=== PATIENT | female | born 1960 | race American Indian/Alaskan Native ===

== ENCOUNTER 2016-09-28 07:59 | Observation (INO) | payer BC, OTHER ==
--- NOTE | 2016-09-28 08:14 | EDM.PDOC ---
ED HPI GI/ABDOMINAL - General Chief Complaint: Gastrointestinal Problem Stated Complaint: VOMITING Time Seen by Provider: 09/28/16 08:10 Source of Information: Reports: Patient History Limitations: Reports: No limitations - History of Present Illness INITIAL COMMENTS - FREE TEXT/NARRATIVE: HISTORY AND PHYSICAL: History of present illness: [] Review of systems: As per history of present illness and below otherwise all systems reviewed and negative. Past medical history: As per history of present illness and as reviewed below otherwise noncontributory. Surgical history: As per history of present illness and as reviewed below otherwise noncontributory. Social history: No reported history of drug or alcohol abuse. Family history: As per history of present illness and as reviewed below otherwise noncontributory. Physical exam: HEENT: Atraumatic, normocephalic, pupils reactive, negative for conjunctival pallor or scleral icterus, mucous membranes moist, throat clear, neck supple, nontender, trachea midline. Lungs: Clear to auscultation, breath sounds equal bilaterally, chest nontender. Heart: S1S2, regular, negative for clicks, rubs, or JVD. Abdomen: Soft, nondistended, nontender. Negative for masses or hepatosplenomegaly. Negative for costovertebral tenderness. Pelvis: Stable nontender. Genitourinary: Deferred. Rectal: Deferred. Extremities: Atraumatic, negative for cords or calf pain. Neurovascular unremarkable. Neuro: Awake, alert, oriented. Cranial nerves II through XII unremarkable. Cerebellum unremarkable. Motor and sensory unremarkable throughout. Exam nonfocal. Diagnostics: [Chest x-ray hyperinflation right-sided port chronic changes no acute disease interpreted by me report reviewed. EKG normal sinus rhythm at [address] findings no STEMI] Therapeutics: Anti-emetics IV fluids Protonix administered] Impression: [] Plan: [Signs and symptoms consistent with upper GI bleed by history though no coffee- ground emesis in the emergency department. Patient describes melanotic stool however stool in ED is dark brown with occult heme-positivity. Patient is on Lovenox injections twice a day with which she has been compliant but has not had a shot this morning. Patient with no active vomiting. She is chronically ill -appearing but in no acute distress. She states she is unable to tolerate any by mouth fluids or food. Mild anemia reflected on labs which are other is essentially unremarkable. Will do observation admission, given that the patient has upper GI bleed by history and occult heme-positive stool in ED in the setting of Lovenox erythema, and as well patient states she has uncontrolled pain and still has uncontrolled nausea and does not feel that she can function as an outpatient, and is requesting admission for hydration. CT pending to rule out acute intra-abdominal process. Case discussed with Dr. Ross hospitalist events solutions consultant who is aware of history and findings and agrees with observation admission to a floor bed for continued hydration further workup and treatment as needed. Patient stable on multiple reexamines with no upper GI bleeding and no gross blood per rectum. Definitive disposition and diagnosis as appropriate pending reevaluation and review of above. Radical Care 31 minutes - Related Data Allergies/ADRs: Allergies Allergy/AdvReac Type Severity Reaction Status Date / Time No Known Allergies Allergy Verified 09/28/16 08:08 Home Meds: Home Meds LORazepam 1 tab PO BID PRN 10/20/15 [History] Sertraline HCl 1 tab PO DAILY 10/20/15 [History] Ranitidine HCl 1 tab PO DAILY 02/15/16 [History] hydrOXYzine Pamoate [Hydroxyzine Pamoate] 1 tab PO DAILY 02/15/16 [History] Fluorouracil 1 dose IV ASDIRECTED 03/10/16 [History] Leucovorin Calcium [Calcium Folinate] 1 dose IV ASDIRECTED 03/10/16 [History] Oxaliplatin 1 dose IV ASDIRECTED 03/10/16 [History] Enoxaparin [Lovenox] 40 mg SQ BID 09/28/16 [History] Sucralfate [Carafate] 1 dose PO 09/28/16 [History] Past Medical History HEENT History: Reports: Other (see below) Other HEENT History: has upper denture and lower partial denture Cardiovascular History: Reports: None Respiratory History: Reports: None Gastrointestinal History: Reports: Chronic constipation, GERD, Other (see below) Other Gastrointestinal History: stomach cancer Genitourinary History: Reports: None 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: Musculoskeletal History: Reports: Fracture Other Musculoskeletal History: wrist Neurological History: Reports: None Other Neuro History: hx of motion sickness on a cruise Psychiatric History: Reports: Anxiety, Depression Endocrine/Metabolic History: Reports: None Hematologic History: Reports: Anemia Immunologic History: Reports: None Oncologic (Cancer) History: Reports: None Dermatologic History: Reports: None - Past Surgical History Head Surgeries/Procedures: Reports: None HEENT Surgical History: Reports: Other (see below) Other HEENT Surgeries/Procedures: Excision of Thyroglossal Duct Cyst Cardiovascular Surgical History: Reports: None Respiratory Surgical History: Reports: None GI Surgical History: Reports: Colonoscopy, EGD Female Surgical History: Reports: None Endocrine Surgical History: Reports: None Neurological Surgical History: Reports: None Musculoskeletal Surgical History: Reports: None Oncologic Surgical History: Reports: None Social & Family History - Family History Family Medical History: Noncontributory - Tobacco Use Smoking Status *Q: Current Every Day Smoker Years of Tobacco use: 30 Packs/Tins Daily: 0.5 - Caffeine Use Caffeine Use: Reports: None - Recreational Drug Use Recreational Drug Use: No Drug Use in Last 12 Months: No ED ROS GENERAL - Review of Systems Review Of Systems: See Below (Per history of present illness) ED EXAM, GI/ABD - Physical Exam Exam: See Below (Per history of present illness) Course - Vital Signs Last Recorded V/S: Last Vital Signs Temp 37.1 C 09/28/16 09:15 Pulse 77 09/28/16 10:13 Resp 18 09/28/16 10:13 BP 143/88 H 09/28/16 10:13 Pulse Ox 97 09/28/16 10:13 - Orders/Labs/Meds Orders: Active Orders 24 hr Category Date Time Status EKG Documentation Completion [RC] STAT Care 09/28/16 08:32 Active Peripheral IV Care [RC] . DIRECTED Care 09/28/16 08:32 Active Abdomen Pelvis w Cont [CT] Stat Exams 09/28/16 09:09 Ordered UA W/MICROSCOPIC [URIN] Stat Lab 09/28/16 08:32 Uncollected Sodium Chloride 0.9% [Saline Flush] Med 09/28/16 08:32 Active 10 ml FLUSH ASDIRECTED PRN Sodium Chloride 0.9% [Saline Flush] Med 09/28/16 08:32 Active 10 ml FLUSH ASDIRECTED PRN Sodium Chloride 0.9% [Saline Flush] Med 09/28/16 08:32 Active 2.5 ml FLUSH ASDIRECTED PRN Sodium Chloride 0.9% [Saline Flush] Med 09/28/16 08:32 Active 2.5 ml FLUSH ASDIRECTED PRN Peripheral IV Insertion Adult [OM.PC] Stat Oth 09/28/16 08:32 Ordered Medication Orders Sodium Chloride (Saline Flush) 10 ml FLUSH ASDIRECTED PRN PRN Reason: Keep Vein Open Last Admin: 09/28/16 09:01 Dose: 10 ml Sodium Chloride (Saline Flush) 2.5 ml FLUSH ASDIRECTED PRN PRN Reason: Keep Vein Open Last Admin: 09/28/16 09:02 Dose: 2.5 ml Sodium Chloride (Saline Flush) 10 ml FLUSH ASDIRECTED PRN PRN Reason: Keep Vein Open Last Admin: 09/28/16 09:01 Dose: 10 ml Sodium Chloride (Saline Flush) 2.5 ml FLUSH ASDIRECTED PRN PRN Reason: Keep Vein Open Last Admin: 09/28/16 09:02 Dose: 2.5 ml Labs: Laboratory Tests 09/28/16 09/28/16 09/28/16 Range/Units 08:42 08:42 08:42 WBC 4.06 (4.0-11.0) K/uL RBC 3.26 L (4.30-5.90) M/uL Hgb 8.7 L (12.0-16.0) g/dL Hct 27.7 L (36.0-46.0) % MCV 85.0 (80.0-98.0) fL MCH 26.7 L (27.0-32.0) pg MCHC 31.4 (31.0-37.0) g/dL RDW Std Deviation 56.7 (28.0-62.0) fl RDW Coeff of Jani 18 H (11.0-15.0) % Plt Count 298 (150-400) K/uL MPV 9.20 (7.40-12.00) fL Neut % (Auto) 64.1 (48.0-80.0) % Lymph % (Auto) 24.4 (16.0-40.0) % Oliver % (Auto) 10.1 (0.0-15.0) % Eos % (Auto) 0.7 (0.0-7.0) % Baso % (Auto) 0.7 (0.0-1.5) % Neut # (Auto) 2.6 (1.4-5.7) K/uL Lymph # (Auto) 1.0 (0.6-2.4) K/uL Oliver # (Auto) 0.4 (0.0-0.8) K/uL Eos # (Auto) 0.0 (0.0-0.7) K/uL Baso # (Auto) 0.0 (0.0-0.1) K/uL Nucleated RBC % 0.0 /100WBC Nucleated RBCs # 0 K/uL INR (0.86-1.11) APTT (18.6-31.3) SEC Sodium 139 (136-146) mmol/L Potassium 3.5 (3.5-5.1) mmol/L Chloride 104 (98-110) mmol/L Carbon Dioxide 25 (21-31) mmol/L BUN 13 (6.0-23.0) mg/dL Creatinine 0.5 L (0.6-1.5) mg/dL Est Cr Clr Drug Dosing 80.07 mL/min Estimated GFR (MDRD) > 60.0 ml/min Glucose 100 (60-110) mg/dL Calcium 8.5 L (8.8-10.8) mg/dL Total Bilirubin 0.3 (0.1-1.5) mg/dL AST 23 (5-40) IU/L ALT 24 (8-54) IU/L Alkaline Phosphatase 88 (40-150) Troponin I < 0.10 (0.0-0.29) NG/ML Total Protein 5.4 L (6.0-8.0) g/dL Albumin 2.7 L (3.5-5.0) g/dL Globulin 2.7 (2.0-3.5) g/dL Albumin/Globulin Ratio 1.0 L (1.3-2.8) Lipase 23 (7-80) U/L Blood Type Antibody Screen 09/28/16 09/28/16 Range/Units 08:42 08:58 WBC (4.0-11.0) K/uL RBC (4.30-5.90) M/uL Hgb (12.0-16.0) g/dL Hct (36.0-46.0) % MCV (80.0-98.0) fL MCH (27.0-32.0) pg MCHC (31.0-37.0) g/dL RDW Std Deviation (28.0-62.0) fl RDW Coeff of Jani (11.0-15.0) % Plt Count (150-400) K/uL MPV (7.40-12.00) fL Neut % (Auto) (48.0-80.0) % Lymph % (Auto) (16.0-40.0) % Oliver % (Auto) (0.0-15.0) % Eos % (Auto) (0.0-7.0) % Baso % (Auto) (0.0-1.5) % Neut # (Auto) (1.4-5.7) K/uL Lymph # (Auto) (0.6-2.4) K/uL Oliver # (Auto) (0.0-0.8) K/uL Eos # (Auto) (0.0-0.7) K/uL Baso # (Auto) (0.0-0.1) K/uL Nucleated RBC % /100WBC Nucleated RBCs # K/uL INR 0.98 (0.86-1.11) APTT 29.3 (18.6-31.3) SEC Sodium (136-146) mmol/L Potassium (3.5-5.1) mmol/L Chloride (98-110) mmol/L Carbon Dioxide (21-31) mmol/L BUN (6.0-23.0) mg/dL Creatinine (0.6-1.5) mg/dL Est Cr Clr Drug Dosing mL/min Estimated GFR (MDRD) ml/min Glucose (60-110) mg/dL Calcium (8.8-10.8) mg/dL Total Bilirubin (0.1-1.5) mg/dL AST (5-40) IU/L ALT (8-54) IU/L Alkaline Phosphatase (40-150) Troponin I (0.0-0.29) NG/ML Total Protein (6.0-8.0) g/dL Albumin (3.5-5.0) g/dL Globulin (2.0-3.5) g/dL Albumin/Globulin Ratio (1.3-2.8) Lipase (7-80) U/L Blood Type O POSITIVE Antibody Screen NEGATIVE Meds: Medications Generic Name Dose Route Start Last Admin Trade Name Freq PRN Reason Stop Dose Admin Sodium Chloride 10 ml 09/28/16 08:32 09/28/16 09:01 Saline Flush FLUSH 10 ml ASDIRECTED PRN Administration Keep Vein Open Sodium Chloride 2.5 ml 09/28/16 08:32 09/28/16 09:02 Saline Flush FLUSH 2.5 ml ASDIRECTED PRN Administration Keep Vein Open Sodium Chloride 10 ml 09/28/16 08:32 09/28/16 09:01 Saline Flush FLUSH 10 ml ASDIRECTED PRN Administration Keep Vein Open Sodium Chloride 2.5 ml 09/28/16 08:32 09/28/16 09:02 Saline Flush FLUSH 2.5 ml ASDIRECTED PRN Administration Keep Vein Open Discontinued Medications Generic Name Dose Route Start Last Admin Trade Name Anantq PRN Reason Stop Dose Admin Hydromorphone HCl 0.5 mg 09/28/16 09:26 09/28/16 09:31 Dilaudid IVPUSH 09/28/16 09:27 0.5 mg ONETIME ONE Administration Sodium Chloride 1,000 mls @ 999 mls/hr 09/28/16 08:32 09/28/16 09:01 Normal Saline IV 09/28/16 09:32 999 mls/hr .Bolus ONE Administration Pantoprazole Sodium 40 mg/ 10 mls @ 300 mls/hr 09/28/16 09:21 09/28/16 09:34 Sodium Chloride IVPUSH 09/28/16 09:22 300 mls/hr NOW ONE Administration Iopamidol 100 ml 09/28/16 09:26 Isovue Multipack-370 (76%) IVPUSH 09/28/16 09:27 ONETIME STA Ondansetron HCl 4 mg 09/28/16 08:33 09/28/16 09:01 Zofran IVPUSH 09/28/16 08:34 4 mg ONETIME ONE Administration Departure - Departure Time of Disposition: 11:47 Disposition: Refer to Observation Condition: fair Clinical Impression: Intractable nausea and vomiting, History of upper gastrointestinal bleeding, Heme positive stool, Abdominal pain Forms: ED Department Discharge - My Orders Last 24 Hours: My Active Orders 09/28/16 08:32 EKG Documentation Completion [RC] STAT Peripheral IV Care [RC] . DIRECTED UA W/MICROSCOPIC [URIN] Stat Sodium Chloride 0.9% [Saline Flush] 10 ml FLUSH ASDIRECTED PRN Sodium Chloride 0.9% [Saline Flush] 10 ml FLUSH ASDIRECTED PRN Sodium Chloride 0.9% [Saline Flush] 2.5 ml FLUSH ASDIRECTED PRN Sodium Chloride 0.9% [Saline Flush] 2.5 ml FLUSH ASDIRECTED PRN Peripheral IV Insertion Adult [OM.PC] Stat 09/28/16 09:09 Abdomen Pelvis w Cont [CT] Stat - Assessment/Plan Last 24 Hours: My Active Orders 09/28/16 08:32 EKG Documentation Completion [RC] STAT Peripheral IV Care [RC] . DIRECTED UA W/MICROSCOPIC [URIN] Stat Sodium Chloride 0.9% [Saline Flush] 10 ml FLUSH ASDIRECTED PRN Sodium Chloride 0.9% [Saline Flush] 10 ml FLUSH ASDIRECTED PRN Sodium Chloride 0.9% [Saline Flush] 2.5 ml FLUSH ASDIRECTED PRN Sodium Chloride 0.9% [Saline Flush] 2.5 ml FLUSH ASDIRECTED PRN Peripheral IV Insertion Adult [OM.PC] Stat 09/28/16 09:09 Abdomen Pelvis w Cont [CT] Stat
[2016-09-28] MEDS ORDERED: Sodium Chloride 0.9% 2.5 ML Syringe FLUSH PRN ×2 (08:32)
[2016-09-28] MEDS ORDERED: Sodium Chloride 0.9% 1,000 ML IV ONE (08:32)
[2016-09-28] MEDS ORDERED: Sodium Chloride 0.9% 10 ML Syringe FLUSH PRN ×2 (08:32)
[2016-09-28] MEDS ORDERED: Ondansetron 4 MG/2 ML SDV IVPUSH ONE (08:33)
[2016-09-28 09:19] LABS: CHLORIDE,CL 104 mmol/L (98-110); SODIUM,NA 139 mmol/L (136-146)
[2016-09-28] MEDS ORDERED: Pantoprazole 40 MG in Sodium Chloride 0.9% 10 ML IVPUSH ONE (09:21)
[2016-09-28] MEDS ORDERED: HYDROmorphone 2 MG/ML Syringe IVPUSH ONE (09:26)
[2016-09-28] MEDS ORDERED: Iopamidol 755 MG/ML 500 ML Multipack Bottle IVPUSH STA (09:26)
--- NOTE | 2016-09-28 10:23 | CR ---
EXAMINATION: Portable chest radiograph. HISTORY: Chest eval. FINDINGS: The trachea is midline. The cardiomediastinal silhouette is within normal limits. No pulmonary infil trates, effusions or pneumothorax. There is a right-sided portacatheter with tip in good position. T here is mild hyperinflation. Osseous structures appear unremarkable. IMPRESSION: No acute cardiopulmonary process.
--- NOTE | 2016-09-28 12:06 | CT ---
CT of the abdomen and pelvis with contrast. HISTORY: Pain TECHNIQUE: Axial CT images were obtained of the abdomen and pelvis following administration ofIsovue -370 without complication. Coronal and sagittal reconstructions obtained. FINDINGS: The lung bases are clear, no pleural effusion. The liver, spleen, adrenal glands, and pancreas appear normal. The gallbladder appears normal. Moder ately prominent gastrohepatic lymph nodes are noted. There is a 3 cm ulceration along the posterior wall of the antrum of the stomach with edema in the adjacent gastric chand. There appears to be a fl uid collection with pockets of air within the retroperitoneum posterior to the ulceration, measuring approximately 2.2 cm. This region which appears separate from the adjacent bowel. There is a small amount of abdominal ascites. The kidneys enhance and function symmetrically without evidence of obstructive uropathy. Small renal cortical cysts are noted. The large and small bowel are normal in caliber without evidence of obstruction. The urinary bladder is minimally filled. The uterus appears normal. No bulky pelvic lymphadenopathy. Free pelvic fluid is noted. No suspicious osseous abnormalities. IMPRESSION: 1. There is a 3 cm ulceration along the posterior wall of the gastric antrum with probable perforati on. 2. There is a small fluid collection within the retroperitoneum measuring 2.2 cm, likely a small abs cess. 3. Small amount of abdominal and pelvic ascites. 4. Mild gastrohepatic and retroperitoneal lymphadenopathy
--- NOTE | 2016-09-28 13:51 | PCM.HP ---
H&P History of Present Illness - General Date of Service: 09/28/16 Source of Information: Patient History Limitations: Reports: No limitations - History of Present Illness Initial Comments - Free Text/Narative: 56 y o woman undergoing chemotherapy for gastric cancer since 02/2016 She reports feeling nauseated and weak lately, and had profuse coffee ground vomitus this morning.She report her hemoglobin was around 11 earlier in week and no 8.7 She is on lovenox for a PE earlier in year She is chronicallly constipated though her opioid use is quite modest. In addition she has early satiety and poor gastric emptying There has been an ongoing weight loss. Onset of Symptoms: Reports: today Duration of Symptoms: Reports: Day(s): Location: Reports: abdomen Severity: moderate Improves with: Reports: None Worsens with: Reports: Eating Associated Symptoms: Denies: loss of appetite Abdominal Pain Score (Numeric/FACES): 5 - Related Data Allergies/Adverse Reactions: Allergies Allergy/AdvReac Type Severity Reaction Status Date / Time No Known Allergies Allergy Verified 09/28/16 08:08 Home Medications: Home Meds LORazepam 0.5 mg PO DAILY PRN 10/20/15 [History] Sertraline HCl 100 mg PO BEDTIME 10/20/15 [History] Ranitidine HCl 150 mg PO DAILY 02/15/16 [History] hydrOXYzine Pamoate [Hydroxyzine Pamoate] 25 mg PO DAILY PRN 02/15/16 [History] Fluorouracil 1 dose IV ASDIRECTED 03/10/16 [History] Leucovorin Calcium [Calcium Folinate] 1 dose IV ASDIRECTED 03/10/16 [History] Oxaliplatin 1 dose IV ASDIRECTED 03/10/16 [History] Enoxaparin [Lovenox] 40 mg SQ BID 09/28/16 [History] Sucralfate [Carafate] 1 gram PO BID 09/28/16 [History] Past Medical History HEENT History: Reports: Other (see below) Other HEENT History: has upper denture and lower partial denture Cardiovascular History: Reports: None Respiratory History: Reports: None Gastrointestinal History: Reports: Chronic constipation, GERD, Other (see below) Other Gastrointestinal History: stomach cancer Genitourinary History: Reports: None 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) Musculoskeletal History: Reports: Fracture Other Musculoskeletal History: wrist Neurological History: Reports: Other (see below) Other Neuro History: hx of motion sickness on a cruise Psychiatric History: Reports: Anxiety, Depression Endocrine/Metabolic History: Reports: None Hematologic History: Reports: Anemia Immunologic History: Reports: None Oncologic (Cancer) History: Reports: Other (see below) Other Oncologic History: stomach cancer Dermatologic History: Reports: None - Infectious Disease History Infectious Disease History: Reports: Chicken pox, Influenza, Mumps - Past Surgical History Head Surgeries/Procedures: Reports: None HEENT Surgical History: Reports: Other (see below) Other HEENT Surgeries/Procedures: Excision of Thyroglossal Duct Cyst Cardiovascular Surgical History: Reports: None Respiratory Surgical History: Reports: None GI Surgical History: Reports: Colonoscopy, EGD, Other (see below) Other GI Surgeries/Procedures: laparoscopy Female Surgical History: Reports: None Endocrine Surgical History: Reports: None Neurological Surgical History: Reports: None Musculoskeletal Surgical History: Reports: None Oncologic Surgical History: Reports: None Social & Family History - Family History Family Medical History: Noncontributory HEENT: Reports: Impaired vision Other Family History: alcohol abuse, brother , mother and likely fasther - Tobacco Use Smoking Status *Q: Current Every Day Smoker Years of Tobacco use: 40 Packs/Tins Daily: 0.5 Used Tobacco, but Quit: No Second Hand Smoke Exposure: Yes - Caffeine Use Caffeine Use: Reports: Soda - Recreational Drug Use Recreational Drug Use: No Drug Use in Last 12 Months: No H&P Review of Systems - Review of Systems: Review Of Systems: See Below General: Reports: weakness HEENT: Reports: no symptoms Pulmonary: Reports: No Symptoms (rather sedentary) Cardiovascular: Reports: no symptoms Gastrointestinal: Reports: Abdominal pain, Constipation Genitourinary: Reports: no symptoms Musculoskeletal: Reports: no symptoms Psychiatric: Reports: no symptoms Neurological: Reports: No Symptoms Hematologic/Lymphatic: Reports: anemia Exam - Exam Exam: See Below - Vital Signs Vital Signs: Last Vital Signs Temp 37.2 C 09/28/16 12:45 Pulse 67 09/28/16 12:45 Resp 16 09/28/16 12:45 BP 151/87 H 09/28/16 12:45 Pulse Ox 97 09/28/16 12:45 Weight: 41.7 kg - Exam Quality Assessment: other (very thin nearly cachectic at 90lb) General: alert, oriented HEENT: Conjunctiva clear Neck: supple Lungs: Clear to auscultation Cardiovascular: regular rate, regular rhythm Abdomen: soft, tenderness (mass RUQ near midline), hypoactive bowel sounds (Female) Exam: Deferred Rectal (Female) Exam: Deferred Back Exam: normal inspection Psychiatric: alert, normal affect - Patient Data Result Diagrams: 09/28/16 08:42 09/28/16 08:42 *Q Meaningful Use (ADM) - VTE *Q VTE Criteria *Q: - Stroke *Q Stroke Criteria *Q: - AMI *Q AMI Criteria *Q: - Problem List (1) History of pulmonary embolus (PE) SNOMED Code(s): 778527561 ICD Code: Z86.711 - PERSONAL HISTORY OF PULMONARY EMBOLISM Status: Acute Current Visit: Yes (2) Malnutrition SNOMED Code(s): 7519460 ICD Code: E46 - UNSPECIFIED PROTEIN-CALORIE MALNUTRITION Status: Acute Current Visit: Yes Problem List Initiated/Reviewed/Updated: Yes Orders Last 24hrs: Active Orders 24 hr Category Date Time Status Clear Liquid Diet [DIET] Diet 09/28/16 Lunch Active Medication Orders Sodium Chloride (Saline Flush) 10 ml FLUSH ASDIRECTED PRN PRN Reason: Keep Vein Open Last Admin: 09/28/16 09:01 Dose: 10 ml Sodium Chloride (Saline Flush) 2.5 ml FLUSH ASDIRECTED PRN PRN Reason: Keep Vein Open Last Admin: 09/28/16 09:02 Dose: 2.5 ml Sodium Chloride (Saline Flush) 10 ml FLUSH ASDIRECTED PRN PRN Reason: Keep Vein Open Last Admin: 09/28/16 09:01 Dose: 10 ml Sodium Chloride (Saline Flush) 2.5 ml FLUSH ASDIRECTED PRN PRN Reason: Keep Vein Open Last Admin: 09/28/16 09:02 Dose: 2.5 ml Assessment/Plan Comment:: anemia, acute blood loss per pt history monitor H&H, stools anticoagulation for PE will continue unless serious bleeding documented gastric cancer PPI continue carafate malnutrition and weight loss dietary consult smoking offer nicotine replacement Pt desires full resuscitation measures
[2016-09-28] MEDS ORDERED: LORazepam 0.5 MG Tab PO PRN (14:13)
[2016-09-28] MEDS ORDERED: Ondansetron 4 MG/2 ML SDV IVPUSH PRN ×2 (14:17→14:45)
[2016-09-28] MEDS ORDERED: Sodium Chloride 0.9% 1,000 ML IV SCH (14:30)
[2016-09-28] MEDS ORDERED: Pantoprazole 40 MG in Sodium Chloride 0.9% 10 ML IVPUSH SCH (14:30)
[2016-09-28] MEDS: Nicotine 7 MG/24 Hr Patch TRDERM SCH ×2 (15:59→17:13)
[2016-09-28] MEDS ORDERED: HYDROmorphone 1 MG/ML Syringe IVPUSH PRN ×2 (17:24→18:54)
[2016-09-28] MEDS: Piperacillin/Tazobactam 3.375 GM in Sodium Chloride 0.9% 50 ML IV SCH (18:20)
[2016-09-28] MEDS ORDERED: Sucralfate Suspension 1 GM/10 ML Cup PO SCH (21:00)
[2016-09-28] MEDS ORDERED: Sertraline 100 MG Tab PO SCH (21:00)
[2016-09-29] MEDS: Piperacillin/Tazobactam 3.375 GM in Sodium Chloride 0.9% 50 ML IV SCH (00:49)
[2016-09-29 00:52] VITALS: BP 168/95
[2016-09-29] MEDS ORDERED: Pantoprazole 40 MG in Sodium Chloride 0.9% 10 ML IVPUSH SCH (09:30)
[2016-09-29] MEDS ORDERED: Enoxaparin 40 MG/0.4 ML Syringe SUBCUT SCH (16:00)
== END 2016-09-29 00:50 | disposition left against medical advice (07) ==
LOC: MW.ED 07:59 → MW.MS 11:49 → OBSVTOIN 12:12 → INTOOBSV 12:12
PROVIDERS: ADMIT Internal Medicine; ATTEND Internal Medicine
DX: D62 Acute posthemorrhagic anemia (principal); C16.9 Malignant neoplasm of stomach, unspecified; K25.5 Chronic or unspecified gastric ulcer with perforation; D63.0 Anemia in neoplastic disease; R63.4 Abnormal weight loss; F17.200 Nicotine dependence, unspecified, uncomplicated; Z79.899 Other long term (current) drug therapy; Z86.711 Personal history of pulmonary embolism; Z79.01 Long term (current) use of anticoagulants
CPT/HCPCS: 36415; 36430; 71010; 74177; 80053; 81001; 83690; 84484; 85025; 85610; 85730; 86850; 86900; 86901; 86920; 86921; 86922; 93005; 96361; 96374; 96375; 96376; 99285; A9270; C9113; G0378; J1170; J2405; J2543; J7040; J7050; P9016; Q9967; 99284

== ENCOUNTER 2016-12-25 21:59 | Emergency (ER) | payer BC, OTHER ==
[2016-12-25] MEDS ORDERED: Sodium Chloride 0.9% 2.5 ML Syringe FLUSH PRN (22:46)
[2016-12-25] MEDS ORDERED: Sodium Chloride 0.9% 10 ML Syringe FLUSH PRN (22:46)
--- NOTE | 2016-12-25 22:49 | EDM.PDOC ---
ED HPI GENERAL MEDICAL PROBLEM - General Chief Complaint: Respiratory Problem Stated Complaint: PT HAS DIFFICULTY BREATHING Time Seen by Provider: 12/25/16 23:00 - History of Present Illness INITIAL COMMENTS - FREE TEXT/NARRATIVE: HISTORY AND PHYSICAL: History of present illness: The patient is a 56-year-old female with a known history of end-stage gastric cancer which she is receiving no treatment and is supposed to be starting hospice per the and she presents with complaints of shortness of breath that started yesterday and she has no oxygen therapy and feeling like she is dehydrated because she is not eating or drinking. She's had no fevers chest pain no abdominal pain or diarrhea. She always has chronic lower extremity edema and she has had generalized weakness but no focal weakness. She has not passed out or blacked out. The patient receives tube feeds as her only nutrition as well as flushes. According to the she has had issues with diarrhea and is on potassium supplementation but has not taken that in the last several days. The patient has an appointment at [facility] tomorrow morning at 9 AM. The patient denies that she is having vomiting . The patient states that at home they will connect her gastric feeding tube to remove gas in any secretions and she is concerned that that needs to be done. Review of systems: As per history of present illness and below otherwise all systems reviewed and negative. Past medical history: As per history of present illness and as reviewed below otherwise noncontributory. Surgical history: As per history of present illness and as reviewed below otherwise noncontributory. Social history: No reported history of drug or alcohol abuse. Family history: As per history of present illness and as reviewed below otherwise noncontributory. Physical exam: Gen.: Cachectic female vital signs other than noted she is speaking clearly without breathlessness but does look withdrawn HEENT: Atraumatic, normocephalic, pupils reactive, negative for conjunctival pallor or scleral icterus, mucous membranes tacky, throat clear, neck supple, nontender, trachea midline. Lungs: Clear to auscultation, breath sounds equal bilaterally, chest nontender. Diminished breath sounds in the bases but no wheezing or stridor Heart: S1S2, regular rate and rhythm no overt murmurs Abdomen: Soft, nondistended, nontender. Bowel sounds are very hypoactive and she has a gastric tube in place without erythema Pelvis: Stable nontender. Genitourinary: Deferred. Rectal: Deferred. Extremities: Atraumatic, negative for cords or calf pain. Neurovascular unremarkable. Patient has dependent edema of bilateral ankles and feet but no pitting edema of the pretibial area Neuro: Awake, alert, oriented. Cranial nerves II through XII unremarkable. Motor and sensory unremarkable throughout. Exam nonfocal. Skin: No evidence of any overt rashes or lesions but overt sallow color to her and turgor appears to be diminished Diagnostics: CBC CMP UA urine culture indicated chest x-ray EKG Therapeutics: Oxygen therapy, IV fluids gravity drainage of gastric tube The patient had asked nursing early in the course for something for her anxiety because she normally takes medications at home so she was given some Ativan IV as she cannot take by mouth meds. Please note that the patient has not been able to give a urine sample and she will not like to continue trying to do so. She has been given 1 dose of IV fluids arrival for her more IV fluids which she would like. I've gone over her testing results with the patient and her including the WBC count with a left shift and the abnormal labs in the chemistry including the potassium of 5.4 and sodium of 125 and the BUN/creatinine of 39/0.8. The patient was offered admission to the hospital for these lab abnormalities and for further testing. She would like to refuse that admission and she has an appointment tomorrow with her clinic doctor which she feels more comfortable with. She tells me she would only like IV fluids and would like to go home. She is aware of the risks involved with doing that but both she and the stated that they would like to explore hospice for home and we will give her the resources for that. The patient is aware as is the that she can return for further care and admission as she chooses. The patient is awake alert and interactive with me and is clinically competent and her is at bedside and also states that this would be her wishes. We'll plan on giving a second IV bolus and discharge home to follow-up tomorrow. Impression: Dehydration with mild hyperkalemia and leukocytosis with a history of end-stage gastric cancer, declining admission Definitive disposition and diagnosis as appropriate pending reevaluation and review of above. stomach Pain Score (Numeric/FACES): 8 - Related Data Allergies Allergy/AdvReac Type Severity Reaction Status Date / Time No Known Allergies Allergy Verified 09/28/16 08:08 Home Meds: Home Meds LORazepam 0.5 mg PO DAILY PRN 10/20/15 [History] Sertraline HCl 100 mg PO BEDTIME 10/20/15 [History] Ranitidine HCl 150 mg PO DAILY 02/15/16 [History] hydrOXYzine Pamoate [Hydroxyzine Pamoate] 25 mg PO DAILY PRN 02/15/16 [History] Fluorouracil 1 dose IV ASDIRECTED 03/10/16 [History] Leucovorin Calcium [Calcium Folinate] 1 dose IV ASDIRECTED 03/10/16 [History] Oxaliplatin 1 dose IV ASDIRECTED 03/10/16 [History] Enoxaparin [Lovenox] 40 mg SQ BID 09/28/16 [History] Sucralfate [Carafate] 1 gram PO BID 09/28/16 [History] Past Medical History HEENT History: Reports: Other (See Below) Other HEENT History: has upper denture and lower partial denture Cardiovascular History: Reports: None Respiratory History: Reports: None Gastrointestinal History: Reports: Chronic Constipation, GERD, Other (See Below) Other Gastrointestinal History: stomach cancer Genitourinary History: Reports: None STUDY SPECIALIST History: Reports: Musculoskeletal History: Reports: Fracture Other Musculoskeletal History: wrist Neurological History: Reports: Other (See Below) Other Neuro History: hx of motion sickness on a cruise Psychiatric History: Reports: Anxiety, Depression Endocrine/Metabolic History: Reports: None Hematologic History: Reports: Anemia Immunologic History: Reports: None Oncologic (Cancer) History: Reports: Other (See Below) Other Oncologic History: stomach cancer Dermatologic History: Reports: None - Infectious Disease History Infectious Disease History: Reports: None - Past Surgical History Head Surgeries/Procedures: Reports: None HEENT Surgical History: Reports: Other (See Below) Cardiovascular Surgical History: Reports: None Respiratory Surgical History: Reports: None GI Surgical History: Reports: Colonoscopy, EGD, Other (See Below) Female Surgical History: Reports: None Endocrine Surgical History: Reports: None Musculoskeletal Surgical History: Reports: None Social & Family History - Family History Family Medical History: Noncontributory HEENT: Reports: Impaired Vision OBGYN: Reports: - Tobacco Use Smoking Status *Q: Current Every Day Smoker Years of Tobacco use: 30 Packs/Tins Daily: 1 Used Tobacco, but Quit: No Second Hand Smoke Exposure: Yes - Caffeine Use Caffeine Use: Reports: Soda - Recreational Drug Use Recreational Drug Use: No Drug Use in Last 12 Months: No ED ROS GENERAL - Review of Systems Review Of Systems: ROS reveals no pertinent complaints other than HPI. ED EXAM, GENERAL - Physical Exam Exam: See Below (See dictation) Course - Vital Signs Last Recorded V/S: Last Vital Signs Temp 36.6 C 12/25/16 22:02 Pulse 98 12/25/16 22:44 Resp 18 12/25/16 22:44 BP 130/84 12/25/16 22:44 Pulse Ox 98 12/25/16 22:44 - Orders/Labs/Meds Orders: Active Orders 24 hr Category Date Time Status Communication Order [RC] STAT Care 12/25/16 22:46 Active EKG Documentation Completion [RC] STAT Care 12/25/16 22:44 Active Oxygen Therapy, ED [RC] ASDIRECTED Care 12/25/16 22:45 Active Pulse Oximetry [RC] ASDIRECTED Care 12/25/16 22:45 Active Chest 2V [CR] Stat Exams 12/25/16 22:45 Taken Sodium Chloride 0.9% [Normal Saline] 500 ml Med 12/25/16 23:00 Active IV STAT Sodium Chloride 0.9% [Normal Saline] 500 ml Med 12/26/16 01:00 Active IV STAT Sodium Chloride 0.9% [Saline Flush] Med 12/25/16 22:46 Active 10 ml FLUSH ASDIRECTED PRN Sodium Chloride 0.9% [Saline Flush] Med 12/25/16 22:46 Active 2.5 ml FLUSH ASDIRECTED PRN Saline Lock Insert [OM.PC] Stat Oth 12/25/16 22:44 Ordered Medication Orders Sodium Chloride (Normal Saline) 500 mls @ 999 mls/hr IV STAT BRITTANY Last Admin: 12/25/16 23:30 Dose: 999 mls/hr Sodium Chloride (Normal Saline) 500 mls @ 999 mls/hr IV STAT BRITTANY Last Admin: 12/26/16 01:04 Dose: 999 mls/hr Sodium Chloride (Saline Flush) 10 ml FLUSH ASDIRECTED PRN PRN Reason: Keep Vein Open Sodium Chloride (Saline Flush) 2.5 ml FLUSH ASDIRECTED PRN PRN Reason: Keep Vein Open Labs: Laboratory Tests 12/25/16 12/25/16 Range/Units 23:20 23:20 WBC 18.17 H (4.0-11.0) K/uL RBC 4.58 (4.30-5.90) M/uL Hgb 8.9 L (12.0-16.0) g/dL Hct 31.7 L (36.0-46.0) % MCV 69.2 L (80.0-98.0) fL MCH 19.4 L (27.0-32.0) pg MCHC 28.1 L (31.0-37.0) g/dL RDW Std Deviation 47.0 (28.0-62.0) fl RDW Coeff of Jani 19 H (11.0-15.0) % Plt Count 264 (150-400) K/uL MPV 8.90 (7.40-12.00) fL Add Manual Diff YES Neutrophils % (Manual) 75 (48.0-80.0) % Band Neutrophils % 13 % Lymphocytes % (Manual) 9 L (16.0-40.0) % Monocytes % (Manual) 3 (0.0-15.0) % Nucleated RBC % 0.0 /100WBC Absolute Seg Neuts 13.6 Band Neutrophils # 2.4 Lymphocytes # (Manual) 1.6 Monocytes # (Manual) 0.5 Nucleated RBCs # 0 K/uL Sodium 125 L (136-146) mmol/L Potassium 5.4 H (3.5-5.1) mmol/L Chloride 87 L (98-110) mmol/L Carbon Dioxide 28 (21-31) mmol/L BUN 39 H (6.0-23.0) mg/dL Creatinine 0.8 (0.6-1.5) mg/dL Est Cr Clr Drug Dosing 47.35 mL/min Estimated GFR (MDRD) > 60.0 ml/min Glucose 114 H (60-110) mg/dL Calcium 9.0 (8.8-10.8) mg/dL Total Bilirubin 0.7 (0.1-1.5) mg/dL AST 43 H (5-40) IU/L ALT 32 (8-54) IU/L Alkaline Phosphatase 380 H (40-150) Total Protein 6.7 (6.0-8.0) g/dL Albumin 2.7 L (3.5-5.0) g/dL Globulin 4.0 H (2.0-3.5) g/dL Albumin/Globulin Ratio 0.7 L (1.3-2.8) Meds: Medications Generic Name Dose Route Start Last Admin Trade Name Freq PRN Reason Stop Dose Admin Sodium Chloride 500 mls @ 999 mls/hr 12/25/16 23:00 12/25/16 23:30 Normal Saline IV 999 mls/hr STAT BRITTANY Administration Sodium Chloride 500 mls @ 999 mls/hr 12/26/16 01:00 12/26/16 01:04 Normal Saline IV 999 mls/hr STAT BRITTANY Administration Sodium Chloride 10 ml 12/25/16 22:46 Saline Flush FLUSH ASDIRECTED PRN Keep Vein Open Sodium Chloride 2.5 ml 12/25/16 22:46 Saline Flush FLUSH ASDIRECTED PRN Keep Vein Open Discontinued Medications Generic Name Dose Route Start Last Admin Trade Name Freq PRN Reason Stop Dose Admin Lorazepam 0.5 mg 12/25/16 23:23 12/25/16 23:33 Ativan PO 12/25/16 23:24 Not Given ONETIME ONE Lorazepam 0.5 mg 12/25/16 23:51 12/25/16 23:56 Ativan IVPUSH 12/25/16 23:52 0.5 mg ONETIME ONE Administration Departure - Departure Time of Disposition: 01:09 Disposition: Home, Self-Care 01 Condition: Fair Clinical Impression: Dehydration, Abnormal laboratory test - Discharge Information Forms: ED Department Discharge Additional Instructions: The following information is given to patients seen in the emergency department who are being discharged to home. This information is to outline your options for follow-up care. We provide all patients seen in our emergency department with a follow-up referral. The need for follow-up, as well as the timing and circumstances, are variable depending upon the specifics of your emergency department visit. If you don't have a primary care physician on staff, we will provide you with a referral. We always advise you to contact your personal physician following an emergency department visit to inform them of the circumstance of the visit and for follow-up with them and/or the need for any referrals to a consulting specialist. The emergency department will also refer you to a specialist when appropriate. This referral assures that you have the opportunity for followup care with a specialist. All of these measure are taken in an effort to provide you with optimal care, which includes your followup. Under all circumstances we always encourage you to contact your private physician who remains a resource for coordinating your care. When calling for followup care, please make the office aware that this follow-up is from your recent emergency room visit. If for any reason you are refused follow-up, please contact the [facility] emergency department at and ask to speak to the emergency department charge nurse. [facility] Primary care- [place] [address] Please follow up later this morning with her clinic physician as you have scheduled or connect with one of our clinic physicians for further care and evaluation. These try to increase hydration 3 your gastric tube and return to ER as needed and as discussed. - My Orders Last 24 Hours: My Active Orders 12/25/16 22:44 EKG Documentation Completion [RC] STAT Saline Lock Insert [OM.PC] Stat 12/25/16 22:45 Oxygen Therapy, ED [RC] ASDIRECTED Pulse Oximetry [RC] ASDIRECTED Chest 2V [CR] Stat 12/25/16 22:46 Communication Order [RC] STAT Sodium Chloride 0.9% [Saline Flush] 10 ml FLUSH ASDIRECTED PRN Sodium Chloride 0.9% [Saline Flush] 2.5 ml FLUSH ASDIRECTED PRN 12/25/16 23:00 Sodium Chloride 0.9% [Normal Saline] 500 ml IV STAT 12/26/16 01:00 Sodium Chloride 0.9% [Normal Saline] 500 ml IV STAT - Assessment/Plan Last 24 Hours: My Active Orders 12/25/16 22:44 EKG Documentation Completion [RC] STAT Saline Lock Insert [OM.PC] Stat 12/25/16 22:45 Oxygen Therapy, ED [RC] ASDIRECTED Pulse Oximetry [RC] ASDIRECTED Chest 2V [CR] Stat 12/25/16 22:46 Communication Order [RC] STAT Sodium Chloride 0.9% [Saline Flush] 10 ml FLUSH ASDIRECTED PRN Sodium Chloride 0.9% [Saline Flush] 2.5 ml FLUSH ASDIRECTED PRN 12/25/16 23:00 Sodium Chloride 0.9% [Normal Saline] 500 ml IV STAT 12/26/16 01:00 Sodium Chloride 0.9% [Normal Saline] 500 ml IV STAT
[2016-12-25] MEDS ORDERED: Sodium Chloride 0.9% 500 ML IV SCH (23:00)
[2016-12-25] MEDS ORDERED: LORazepam 0.5 MG Tab PO ONE (23:23)
[2016-12-25 23:49] LABS: CHLORIDE,CL 87 mmol/L (98-110); SODIUM,NA 125 mmol/L (136-146)
[2016-12-25] MEDS ORDERED: LORazepam 2 MG/ML MDV IVPUSH ONE (23:51)
[2016-12-26] MEDS ORDERED: Sodium Chloride 0.9% 500 ML IV SCH (01:00)
[2016-12-26 03:50] VITALS: BP 121/73
--- NOTE | 2016-12-26 14:43 | CR ---
EXAM DATE: 12/25/16 PATIENT'S AGE: 56 Patient: COOKIE INTERIANO Facility: [place], [place] Site Site : [id number] Study: XRay Chest [id number]/31/2017 12:22:10 AM Ordering Physician: FIGUEROA LOCKETT MD Final Report: INDICATION: Shortness of breath TECHNIQUE: Chest radiograph 2 views COMPARISON: None FINDINGS: Cardiovascular and mediastinum: The heart silhouette is normal in size and morphology. The mediastinum is normal in appearance. Right Port-A-Cath present with tip in SVC. Lungs and pleural spaces: Mild septal thickening is present within the left lung. Trace left pleural effusion seen. No pneumothorax is identified. Bones and soft tissues: No significant findings. IMPRESSION: 1. Mild septal thickening is present within the left lung. Trace left pleural effusion seen. This can be due to mild interstitial edema or interstitial lung disease. Dictated by Robbie Merino MD @ 12/26/2016 12:29:53 AM Dictated by: Robbie Merino MD @ 12/26/2016 00:29:55 (Electronic Signature) Report Signed by Proxy. [facility] HOSPITALMyra
== END 2016-12-26 02:28 | disposition home or self-care (01) ==
LOC: MW.ED 21:59
DX: E87.5 Hyperkalemia (principal); E86.0 Dehydration; D72.829 Elevated white blood cell count, unspecified; K21.9 Gastro-esophageal reflux disease without esophagitis; F41.9 Anxiety disorder, unspecified; F32.9 Major depressive disorder, single episode, unspecified; F17.210 Nicotine dependence, cigarettes, uncomplicated; Z79.899 Other long term (current) drug therapy
CPT/HCPCS: 71020; 80053; 85025; 93005; 96361; 96374; 99285; J2060; J7040; 99284